=== PATIENT | female | born 1935 | race Caucasian/White ===

== ENCOUNTER 2018-08-26 18:12 | Inpatient (IN) | payer MEDICARE, OTHER ==
[~2018-08-26] VITALS: Ht 167.6 cm; Wt 69.1 kg
[2018-08-26] MEDS ORDERED: DILTIAZEM 5 MG/ML, 5ML IVPush STA (18:26)
[2018-08-26] MEDS ORDERED: SODIUM CHLORIDE 0.9% 1,000ML IVBOLUS ONE (18:30)
[2018-08-26] MEDS ORDERED: SODIUM CHLORIDE FLUSH 10ML SYR IVF ONE (18:30)
[2018-08-26] MEDS ORDERED: ASPIRIN 81 MG TABLET CHEW PO ONE (18:30)
[2018-08-26] MEDS ORDERED: ASPIRIN 81 MG TABLET CHEW ONE (18:31)
[2018-08-26] MEDS ORDERED: DILTIAZEM 5 MG/ML, 5ML ONE ×2 (18:31→18:52)
--- NOTE | 2018-08-26 18:38 | NUR ---
PT HAS BEEN FEELING SOB SINCE SUNDAY. FOUND TO BE IN RAPID AFIB BY MEDICS. PT HAS AN OCCASIONAL COUGH, TACHIPNIC. MEDICATED PER ORDERS FOR RAPID AFIB. FAMILY AT BEDSIDE.
[2018-08-26] MEDS ORDERED: LEVO25TA4 PO (18:40)
[2018-08-26 18:53] LABS: BASOPHILS # (AUTO) 0.03 x10^3/uL (0-0.1); BASOPHILS % (AUTO) 1 % (0-1); EOSINOPHILS # (AUTO) 0.04 x10^3/uL (0-0.4); EOSINOPHILS % (AUTO) 1 % (1-7); LYMPHOCYTES % (AUTO) 9 % (22-44); MD NO; MEAN CORPUSCULAR HEMOGLOBIN 30.2 pg (27.0-34.8); MEAN CORPUSCULAR HGB CONC 33.5 g/dL (32.4-35.8); MEAN CORPUSCULAR VOLUME 90.2 fL (80-100); MEAN PLATELET VOLUME 9.2 fL (7.4-10.4); MONOCYTES # (AUTO) 0.36 x10^3/uL (0.2-0.8); MONOCYTES % (AUTO) 6 % (2-9); NEUTROPHILS % (AUTO) 84 % (42-75); PLATELET COUNT 165 x10^3/uL (130-400); RED BLOOD COUNT 4.56 x10^6/uL (3.82-5.3); RED CELL DISTRIBUTION WIDTH 15.8 % (9.6-15.2)
--- NOTE | 2018-08-26 18:54 | NUR ---
REMEDICATED FOR FAST HR/AFIB. WILL CONTINUE TO MONITOR
[2018-08-26] MEDS ORDERED: DILTIAZEM 5 MG/ML, 5ML IVPush ONE (19:00)
[2018-08-26 19:02] LABS: INTERNATIONAL NORMALIZED RATIO 1.04 (0.93-1.1); PROTHROMBIN TIME 10.9 Seconds (9.6-11.5)
[2018-08-26 19:03] LABS: ALANINE AMINOTRANSFERASE 22 U/L (12-78); ALBUMIN 3.8 g/dL (3.4-5.0); ANION GAP 8 mmol/L (5-15); CALCIUM 8.9 mg/dL (8.5-10.1); CHLORIDE 109 mmol/L (98-107); CREATININE 0.94 mg/dL (0.55-1.02)
[2018-08-26 19:08] LABS: ALKALINE PHOSPHATASE 72 U/L (45-117); BILIRUBIN,TOTAL 0.8 mg/dL (0.2-1.0); TOTAL PROTEIN 6.8 g/dL (6.4-8.2); TROPONIN I < 0.015 ng/mL (0.000-0.045)
[2018-08-26] MEDS ORDERED: DILTIAZEM 60 MG TABLET ONE (19:25)
[2018-08-26] MEDS ORDERED: DILTIAZEM 60 MG TABLET PO SCH (19:30)
--- NOTE | 2018-08-26 19:31 | NUR ---
TECH AT BEDSIDE COMPLETING REPEAT EKG
[2018-08-26] MEDS ORDERED: DILTIAZEM 125 MG in DEXTROSE 5% 100 ML IV SCH (19:52)
[2018-08-26] MEDS ORDERED: FUROSEMIDE 20 MG/2 ML IV ONE (20:00)
[2018-08-26] MEDS ORDERED: FUROSEMIDE 20 MG/2 ML ONE (20:12)
--- NOTE | 2018-08-26 20:28 | NUR ---
AFTER HOSPITALIST EXAM, DILTIAZEM DRIP STARTED PER ORDERS
[2018-08-26] MEDS: DILTIAZEM 125 MG in SODIUM CHLORIDE 0.9% 100 ML IV SCH (20:30)
[2018-08-26] MEDS ORDERED: ONDANSETRON ODT 4 MG PO PRN (20:30)
--- NOTE | 2018-08-26 20:51 | NUR ---
REPORT TO AMY LUCIA. TO BE TRANSPORTED TO FLOOR VIA [facility] ON [facility]IT[facility]
[2018-08-26 21:35] LABS: RAPID INFLUENZA A Negative (Negative); RAPID INFLUENZA B Negative (Negative)
[2018-08-26 23:26] VITALS: BP 105/67
[2018-08-27 02:25] VITALS: BP 99/62
[2018-08-27] MEDS: ASPIRIN 81 MG TABLET EC PO SCH (05:35)
[2018-08-27] MEDS: ALBUTEROL/IPRATROPIUM 2.5MG/0.5MG, 3 ML NPPB PRN ×3 (05:40→21:15)
[2018-08-27 05:58] LABS: CHLORIDE 108 mmol/L (98-107)
[2018-08-27 05:59] LABS: BASOPHILS # (AUTO) 0.02 x10^3/uL (0-0.1); BASOPHILS % (AUTO) 1 % (0-1); EOSINOPHILS # (AUTO) 0.05 x10^3/uL (0-0.4); EOSINOPHILS % (AUTO) 1 % (1-7); LYMPHOCYTES # (AUTO) 0.62 x10^3/uL (1-3.4); LYMPHOCYTES % (AUTO) 14 % (22-44); MD NO; MEAN CORPUSCULAR HEMOGLOBIN 30.2 pg (27.0-34.8); MEAN CORPUSCULAR HGB CONC 33.6 g/dL (32.4-35.8); MEAN CORPUSCULAR VOLUME 89.8 fL (80-100); MEAN PLATELET VOLUME 9.8 fL (7.4-10.4); MONOCYTES # (AUTO) 0.41 x10^3/uL (0.2-0.8); MONOCYTES % (AUTO) 9 % (2-9); NEUTROPHILS # (AUTO) 3.42 x10^3/uL (1.8-6.8); NEUTROPHILS % (AUTO) 76 % (42-75); PLATELET COUNT 149 x10^3/uL (130-400); RED BLOOD COUNT 4.16 x10^6/uL (3.82-5.3); RED CELL DISTRIBUTION WIDTH 15.9 % (9.6-15.2)
[2018-08-27 06:14] LABS: ANION GAP 7 mmol/L (5-15); CALCIUM 8.8 mg/dL (8.5-10.1); CREATININE 0.88 mg/dL (0.55-1.02); TROPONIN I < 0.015 ng/mL (0.000-0.045)
[2018-08-27] MEDS: DILTIAZEM 125 MG in SODIUM CHLORIDE 0.9% 100 ML IV SCH ×2 (06:14→20:34)
[2018-08-27] MEDS ORDERED: LEVO100T PO (06:50)
[2018-08-27] MEDS ORDERED: OMNIPAQUE 350 MG/ML, 100ML BOTTLE ONE (08:08)
[2018-08-27 08:43] VITALS: BP 112/66
[2018-08-27 13:10] VITALS: BP 105/63
[2018-08-27] MEDS ORDERED: HEPARIN 5,000 UNITS/ML, 1ML IV ONE (17:00)
[2018-08-27] MEDS ORDERED: HEPARIN 25,000 UNITS/500ML PMX 500 ML IV PRN (17:00)
[2018-08-27] MEDS ORDERED: HEPARIN 5,000 UNITS/ML, 1ML IV PRN (17:00)
[2018-08-27 19:55] VITALS: BP 124/73
[2018-08-28 01:02] VITALS: BP 107/69
[2018-08-28] MEDS: LEVOTHYROXINE 100 MCG TABLET PO SCH (05:40)
[2018-08-28] MEDS: ASPIRIN 81 MG TABLET EC PO SCH (05:41)
[2018-08-28 06:25] LABS: BASOPHILS # (AUTO) 0.04 x10^3/uL (0-0.1); BASOPHILS % (AUTO) 1 % (0-1); EOSINOPHILS # (AUTO) 0.07 x10^3/uL (0-0.4); EOSINOPHILS % (AUTO) 2 % (1-7); LYMPHOCYTES # (AUTO) 0.79 x10^3/uL (1-3.4); LYMPHOCYTES % (AUTO) 20 % (22-44); MD NO; MEAN CORPUSCULAR HEMOGLOBIN 30.2 pg (27.0-34.8); MEAN PLATELET VOLUME 9.4 fL (7.4-10.4); MONOCYTES # (AUTO) 0.43 x10^3/uL (0.2-0.8); MONOCYTES % (AUTO) 11 % (2-9); NEUTROPHILS # (AUTO) 2.55 x10^3/uL (1.8-6.8); NEUTROPHILS % (AUTO) 66 % (42-75); PLATELET COUNT 140 x10^3/uL (130-400); RED BLOOD COUNT 4.35 x10^6/uL (3.82-5.3); RED CELL DISTRIBUTION WIDTH 16.6 % (9.6-15.2)
[2018-08-28 06:39] LABS: ALBUMIN 3.5 g/dL (3.4-5.0); ANION GAP 7 mmol/L (5-15); CALCIUM 8.9 mg/dL (8.5-10.1); CHLORIDE 109 mmol/L (98-107)
[2018-08-28 06:44] VITALS: BP 122/77
[2018-08-28 06:44] LABS: ALANINE AMINOTRANSFERASE 21 U/L (12-78); ALKALINE PHOSPHATASE 67 U/L (45-117); BILIRUBIN,TOTAL 0.6 mg/dL (0.2-1.0); CREATININE 0.88 mg/dL (0.55-1.02); TOTAL PROTEIN 6.5 g/dL (6.4-8.2)
[2018-08-28] MEDS ORDERED: FUROSEMIDE 20 MG/2 ML IV ONE (08:00)
[2018-08-28] MEDS: APIXABAN 5 MG TABLET PO SCH ×2 (08:42→20:08)
[2018-08-28] MEDS: DILTIAZEM 60 MG TABLET PO SCH ×4 (08:42→20:08)
[2018-08-28] MEDS: DILTIAZEM 125 MG in SODIUM CHLORIDE 0.9% 100 ML IV SCH (10:00)
[2018-08-28 12:59] VITALS: BP 101/56
[2018-08-28 18:45] VITALS: BP 121/74
[2018-08-29] MEDS: GUAIFENESIN/DM 200-20MG, 10ML UDC PO PRN ×2 (00:07→06:07)
[2018-08-29 00:08] VITALS: BP 123/77
[2018-08-29 05:08] LABS: CHLORIDE 108 mmol/L (98-107)
[2018-08-29 05:13] LABS: BASOPHILS # (AUTO) 0.03 x10^3/uL (0-0.1); BASOPHILS % (AUTO) 1 % (0-1); EOSINOPHILS # (AUTO) 0.14 x10^3/uL (0-0.4); EOSINOPHILS % (AUTO) 4 % (1-7); LYMPHOCYTES # (AUTO) 0.97 x10^3/uL (1-3.4); LYMPHOCYTES % (AUTO) 25 % (22-44); MD NO; MEAN CORPUSCULAR HEMOGLOBIN 30.1 pg (27.0-34.8); MEAN CORPUSCULAR HGB CONC 33.5 g/dL (32.4-35.8); MEAN CORPUSCULAR VOLUME 89.8 fL (80-100); MEAN PLATELET VOLUME 9.3 fL (7.4-10.4); MONOCYTES # (AUTO) 0.39 x10^3/uL (0.2-0.8); MONOCYTES % (AUTO) 10 % (2-9); NEUTROPHILS # (AUTO) 2.28 x10^3/uL (1.8-6.8); NEUTROPHILS % (AUTO) 60 % (42-75); PLATELET COUNT 166 x10^3/uL (130-400); RED BLOOD COUNT 4.15 x10^6/uL (3.82-5.3); RED CELL DISTRIBUTION WIDTH 16.2 % (9.6-15.2)
[2018-08-29 05:15] LABS: ALANINE AMINOTRANSFERASE 16 U/L (12-78); ALBUMIN 3.3 g/dL (3.4-5.0); ALKALINE PHOSPHATASE 65 U/L (45-117); ANION GAP 6 mmol/L (5-15); BILIRUBIN,TOTAL 0.6 mg/dL (0.2-1.0); CALCIUM 9.2 mg/dL (8.5-10.1); CREATININE 0.93 mg/dL (0.55-1.02); TOTAL PROTEIN 6.5 g/dL (6.4-8.2)
[2018-08-29] MEDS: LEVOTHYROXINE 100 MCG TABLET PO SCH (05:24)
[2018-08-29] MEDS: ASPIRIN 81 MG TABLET EC PO SCH (05:25)
[2018-08-29 07:06] VITALS: BP 110/70
[2018-08-29] MEDS: DILTIAZEM 60 MG TABLET PO SCH ×2 (08:10→11:50)
[2018-08-29] MEDS: APIXABAN 5 MG TABLET PO SCH (08:10)
[2018-08-29 13:27] VITALS: BP 120/64
[2018-08-29] MEDS ORDERED: APIX5TAB PO (14:04)
[2018-08-29] MEDS ORDERED: DILT30TA27 PO (14:04)
[2018-08-29] MEDS ORDERED: DILTIAZEM 30 MG TABLET PO SCH (16:00)
== END 2018-08-29 15:15 | disposition home or self-care (01) | DRG 291 ==
LOC: ED 20:18 → EDIP 20:20 → 5SO 21:24 → DCLOUNGE 08-29 14:54
PROVIDERS: ADMIT Internal Medicine; ATTEND Internal Medicine
DX: I50.33 Acute on chronic diastolic (congestive) heart failure (principal); J96.20 Acute and chronic respiratory failure, unspecified whether with hypoxia or hypercapnia; D68.69 Other thrombophilia; Q21.1 Atrial septal defect; I42.9 Cardiomyopathy, unspecified; I48.91 Unspecified atrial fibrillation; J06.9 Acute upper respiratory infection, unspecified; E66.01 Morbid (severe) obesity due to excess calories; I34.0 Nonrheumatic mitral (valve) insufficiency; Z79.01 Long term (current) use of anticoagulants; Z79.82 Long term (current) use of aspirin; Z68.24 Body mass index [BMI] 24.0-24.9, adult; Z85.3 Personal history of malignant neoplasm of breast; Z87.891 Personal history of nicotine dependence
CPT/HCPCS: 36415; 71045; 71275; 80048; 80053; 83735; 83880; 84100; 84145; 84443; 84484; 85025; 85379; 85520; 85610; 85730; 87400; 93005; 93306; 94640; 96361; 96374; 96375; 96376; G0378; J1644; J7620; Q9967; J1940; J7030